=== PATIENT | male | born 1985 | race Hispanic/Latino ===

== ENCOUNTER 2022-10-27 13:14 | Emergency (ER) | payer OTHER ==
[~2022-10-27] VITALS: Ht 165.1 cm; Wt 77.0 kg
[2022-10-27 13:15] VITALS: BP 133/93; TEMP 97.3; O2SAT 100
[2022-10-27] MEDS ORDERED: KETOROLAC 60MG 2ML VIAL IM ONE (17:40)
[2022-10-27] MEDS ORDERED: predniSONE 20 MG TAB PO ONE (17:40)
[2022-10-27] MEDS ORDERED: LIDOCAINE 5% (LIDODERM) PATCH TD ONE (17:40)
[2022-10-27] MEDS ORDERED: KETO10TAB PO (18:36)
[2022-10-27] MEDS ORDERED: CYCL-707 PO (18:36)
[2022-10-27] MEDS ORDERED: LIDO5DIS41 TD (18:36)
== END 2022-10-27 18:43 | disposition home or self-care (01) ==
LOC: M ED 13:14
DX: M62.830 Muscle spasm of back (principal); M54.50 Low back pain, unspecified; F10.10 Alcohol abuse, uncomplicated; Z79.1 Long term (current) use of non-steroidal anti-inflammatories (NSAID); Z79.899 Other long term (current) drug therapy
CPT/HCPCS: 72072; 72110; 96372; 99282; J1885; J7512